=== PATIENT | male | born 1995 | race Hispanic/Latino ===

== ENCOUNTER 2024-03-27 07:21 | Emergency (ER) | payer OTHER ==
[~2024-03-27] VITALS: Ht 177.8 cm; Wt 82.3 kg
[2024-03-27 07:26] VITALS: BP 122/59; TEMP 96.7; O2SAT 99
[2024-03-27] MEDS: ONDANSETRON 4MG ORAL DISINTEGRATING TAB PO ONE (08:33)
[2024-03-27 08:45] LABS: BASO % 0.3 % (0.0-1.0); EOS % 0.1 % (0.0-3.0); HEMATOCRIT 41.7 % (42.0-52.0); HEMOGLOBIN 14.4 g/dl (13.5-17.5); LYMPH # 1.3 10^3/uL (1.5-5.0); LYMPH % 11.5 % (24.0-44.0); MEAN CORPUSCULAR HEMOGLOBIN 27.7 pg (27.0-33.0); MEAN CORPUSCULAR HGB CONC 34.5 g/dl (32.0-36.5); MEAN CORPUSCULAR VOLUME 80.3 fl (80.0-96.0); MONO # 0.7 10^3/uL (0.0-0.8); MONO % 6.3 % (2.0-8.0); NEUTROPHILS # 9.3 10^3/uL (1.5-8.5); NEUTROPHILS % 81.4 % (36.0-66.0); PLATELET COUNT, AUTOMATED 295 10^3/uL (150-450); RED BLOOD COUNT 5.19 10^6/uL (4.30-6.10); WHITE BLOOD COUNT 11.4 10^3/uL (4.0-10.0)
[2024-03-27 09:18] LABS: BLOOD UREA NITROGEN 18 MG/DL (9-23); CALCIUM LEVEL 9.7 MG/DL (8.5-10.1); CARBON DIOXIDE LEVEL 23 MMOL/L (20-31); CHLORIDE LEVEL 103 MMOL/L (98-107); CREATININE FOR GFR 0.84 MG/DL (0.70-1.30); GLOMERULAR FILTRATION RATE > 60.0 (>60); GLUCOSE, FASTING 114 MG/DL (60-100); POTASSIUM SERUM 3.5 MMOL/L (3.5-5.1); SODIUM LEVEL 135 MMOL/L (136-145)
[2024-03-27] MEDS: METOCLOPRAMIDE INJ 10MG/2ML VIAL IV ONE (10:49)
[2024-03-27] MEDS ORDERED: ISOVUE-370 76% 100ML VIAL As Ordered ONE (11:11)
[2024-03-27] MEDS: KETOROLAC 30 MG/ML 1ML VIAL IV ONE (11:25)
[2024-03-27 11:50] LABS: ALBUMIN 3.9 G/DL (3.2-5.2); ALKALINE PHOSPHATASE 92 U/L (40-129); ALT/SGPT 46 U/L (7.0-40); AST/SGOT 52 U/L (<34); BILIRUBIN,DIRECT 0.2 MG/DL (<0.4); BILIRUBIN,TOTAL 0.7 MG/DL (0.3-1.2)
[2024-03-27 12:20] LABS: LIPASE 40 U/L (12-53)
[2024-03-27] MEDS: PIPERACILLIN/TAZOBACTAM SOD 3.375 GM in DEXTROSE 5% (D5W) ADV/MINI-BAG 50 ML IV ONE (12:53)
[2024-03-27] MEDS: PANTOPRAZOLE 40MG VIAL IV ONE (14:07)
[2024-03-27] MEDS ORDERED: REGL5TAB2 PO (14:22)
[2024-03-27] MEDS ORDERED: AMOX875T2 PO (14:22)
[2024-03-27] MEDS ORDERED: PROT20TA11 PO (14:22)
== END 2024-03-27 14:37 | disposition home or self-care (01) ==
LOC: M ED 07:21
DX: K80.66 Calculus of gallbladder and bile duct with acute and chronic cholecystitis without obstruction (principal); K21.00 Gastro-esophageal reflux disease with esophagitis, without bleeding; Z79.2 Long term (current) use of antibiotics; Z79.899 Other long term (current) drug therapy
CPT/HCPCS: 74177; 80048; 80076; 83690; 85025; 96365; 96366; 96374; 96375; 99284; J1885; J2470; J2543; J2765; Q9967

== ENCOUNTER 2024-03-28 21:37 | Emergency (ER) | payer OTHER ==
[~2024-03-28] VITALS: Ht 177.8 cm; Wt 81.8 kg
[~2024-03-28 21:37] MED LIST: AMOX875T2 PO; PROT20TA11 PO; REGL5TAB2 PO
[2024-03-28 21:39] VITALS: TEMP 97.8
[2024-03-28 22:20] LABS: BASO # 0.1 10^3/uL (0.0-0.2); BASO % 0.4 % (0.0-1.0); EOS # 0.1 10^3/uL (0.0-0.5); EOS % 0.8 % (0.0-3.0); HEMATOCRIT 43.7 % (42.0-52.0); LYMPH # 2.4 10^3/uL (1.5-5.0); LYMPH % 17.8 % (24.0-44.0); MEAN CORPUSCULAR HEMOGLOBIN 27.7 pg (27.0-33.0); MEAN CORPUSCULAR HGB CONC 34.3 g/dl (32.0-36.5); MEAN CORPUSCULAR VOLUME 80.6 fl (80.0-96.0); MONO % 7.5 % (2.0-8.0); NEUTROPHILS # 9.7 10^3/uL (1.5-8.5); NEUTROPHILS % 72.9 % (36.0-66.0); PLATELET COUNT, AUTOMATED 310 10^3/uL (150-450); RED BLOOD COUNT 5.42 10^6/uL (4.30-6.10); WHITE BLOOD COUNT 13.4 10^3/uL (4.0-10.0)
[2024-03-28 22:44] LABS: LIPASE 39 U/L (12-53)
[2024-03-28 22:45] LABS: CK-MB VALUE MASS < 1.0 NG/ML (<3.6)
[2024-03-28 22:46] LABS: ALKALINE PHOSPHATASE 101 U/L (40-129); ALT/SGPT 159 U/L (7.0-40); AST/SGOT 66 U/L (<34); BILIRUBIN,DIRECT 0.3 MG/DL (<0.4); BLOOD UREA NITROGEN 16 MG/DL (9-23); CALCIUM LEVEL 9.8 MG/DL (8.5-10.1); CARBON DIOXIDE LEVEL 23 MMOL/L (20-31); CHLORIDE LEVEL 101 MMOL/L (98-107); CREATININE FOR GFR 0.89 MG/DL (0.70-1.30); GLOMERULAR FILTRATION RATE > 60.0 (>60); GLUCOSE, FASTING 109 MG/DL (60-100); POTASSIUM SERUM 3.3 MMOL/L (3.5-5.1); SODIUM LEVEL 135 MMOL/L (136-145)
[2024-03-28 22:47] LABS: CPK CREATINE PHOSPHOKINASE 128 U/L (46-171); MB/CK RELATIVE INDEX 0.78 (< OR =4)
[2024-03-28] MEDS: diphenhydrAMINE 50MG/ML VIAL IV STA (22:47)
[2024-03-28] MEDS: FAMOTIDINE 20MG/2ML VIAL IVP ONE (22:47)
[2024-03-28] MEDS: KETOROLAC 30 MG/ML 1ML VIAL IV ONE (22:48)
[2024-03-29] MEDS: PIPERACILLIN/TAZOBACTAM SOD 3.375 GM in DEXTROSE 5% (D5W) ADV/MINI-BAG 50 ML IV ONE (00:08)
[2024-03-29 00:16] LABS: CK-MB VALUE MASS < 1.0 NG/ML (<3.6)
[2024-03-29 00:19] LABS: CPK CREATINE PHOSPHOKINASE 121 U/L (46-171); MB/CK RELATIVE INDEX 0.82 (< OR =4)
[2024-03-29 01:00] VITALS: BP 114/59; O2SAT 97
== END 2024-03-29 01:11 | disposition home or self-care (01) ==
LOC: M ED 21:37
DX: K80.51 Calculus of bile duct without cholangitis or cholecystitis with obstruction (principal); R94.31 Abnormal electrocardiogram [ECG] [EKG]; Z79.2 Long term (current) use of antibiotics; Z79.899 Other long term (current) drug therapy
CPT/HCPCS: 76705; 80047; 80048; 80076; 81001; 82550; 82553; 83690; 84484; 85025; 93005; 93041; 96365; 96375; 99284; J1200; J1885; J2543; S0028